=== PATIENT | male | born 1955 | race African-American/Black ===

== ENCOUNTER 2016-11-04 12:13 | Emergency (ER) | payer MEDICAID ==
--- NOTE | 2016-11-04 12:34 | ER Document Report ---
ED Medical Screen (RME) - General Stated Complaint: BLOOD PRESSURE PROBLEM Time seen by provider: 12:32 Mode of Arrival: Ambulatory Information source: Patient Notes: 61-year-old male presents to ED for blood pressure problems. He states over the last 3 months has been rising. States he knows his blood sugar is high. He is a type II diabetic. States that his blood sugar at home this morning was between 200-300. He states he is experiencing weakness, denies nausea and vomiting and he states he has frequency of urine. I have greeted and performed a rapid initial assessment of this patient. A comprehensive ED assessment and evaluation of the patient, analysis of test results and completion of medical decision making process will be conducted by an additional ED providers. - Related Data Allergies/Adverse Reactions: No Known Allergies Allergy (Verified 11/04/16 12:32) Physical Exam - Vital signs Vitals: Temp Pulse Resp BP Pulse Ox 98.3 F 86 20 162/83 H 98 11/04/16 12:30 11/04/16 12:30 11/04/16 12:30 11/04/16 12:30 11/04/16 12:30 Course - Vital Signs Vital signs: Temp Pulse Resp BP Pulse Ox 98.3 F 86 20 162/83 H 98 11/04/16 12:30 11/04/16 12:30 11/04/16 12:30 11/04/16 12:30 11/04/16 12:30
[2016-11-04] MEDS ORDERED: NORMAL SALINE 1000 ML 1,000 ML IV ONE ×2 (12:49→14:32)
[2016-11-04 12:59] LABS: ABSOLUTE EOSINOPHILS # (AUTO) 0.2 10^3/uL (0.0-0.6); ABSOLUTE LYMPHOCYTES (AUTO) 2.2 10^3/uL (0.5-4.7); ABSOLUTE MONOCYTES (AUTO) 0.5 10^3/uL (0.1-1.4); ABSOLUTE NEUT (AUTO) 4.4 10^3/uL (1.7-8.2); BASOPHILS % (AUTO) 0.6 % (0-2); EOSINOPHILS % (AUTO) 2.2 % (0-6); HEMATOCRIT 35.3 % (37.9-51.0); HEMOGLOBIN 11.1 g/dL (13.5-17.0); LYMPHOCYTES % (AUTO) 30.5 % (13-45); MEAN CORPUSCULAR HEMOGLOBIN 25.3 pg (27.0-33.4); MEAN CORPUSCULAR HGB CONC 31.6 g/dL (32.0-36.0); MEAN CORPUSCULAR VOLUME 80 fl (80-97); MONOCYTES % (AUTO) 7.3 % (3-13); RED CELL DISTRIBUTION WIDTH 16.2 % (11.5-14.0); SEGMENTED NEUTROPHILS % (AUTO) 59.4 % (42-78); WHITE BLOOD COUNT 7.4 10^3/uL (4.0-10.5)
[2016-11-04 13:01] LABS: APPEARANCE,URINE SLIGHTLY-CLOUDY; BILIRUBIN,URINE NEGATIVE (NEGATIVE); GLUCOSE, URINE >=500 mg/dL (NEGATIVE); KETONES,URINE NEGATIVE (NEGATIVE); LEUKOCYTE ESTERASE,URINE NEGATIVE (NEGATIVE); NITRITE,URINE NEGATIVE (NEGATIVE); PROTEIN,URINE >=500 mg/dL (NEGATIVE); URINE SPECIFIC GRAVITY 1.022; UROBILINOGEN,URINE NEGATIVE mg/dL (<2.0)
[2016-11-04 13:27] LABS: ALANINE AMINOTRANSFERASE 36 U/L (21-72); ALBUMIN 4.2 g/dL (3.5-5.0); ALKALINE PHOSPHATASE 158 U/L (38-126); ANION GAP 10 (5-19); ASPARTATE AMINO TRANSFERASE 24 U/L (17-59); BLOOD UREA NITROGEN 26 mg/dL (7-20); CALCIUM 9.8 mg/dL (8.4-10.2); CARBON DIOXIDE 28 mmol/L (22-30); CHLORIDE 98 mmol/L (98-107); CREATININE RESULT 1.15 mg/dL (0.52-1.25); POTASSIUM 4.6 mmol/L (3.6-5.0); SODIUM 135.8 mmol/L (137-145); TOTAL PROTEIN 7.3 g/dL (6.3-8.2)
[2016-11-04 13:40] LABS: GLUCOSE 491 mg/dL (75-110)
[2016-11-04 14:15] LABS: VENOUS BLOOD BASE EXCESS 1.7 mmol/L; VENOUS BLOOD HCO3 28.7 mmol/L (20-32); VENOUS BLOOD PCO2 55.6 mmHg (35-63); VENOUS BLOOD PH 7.33 (7.30-7.42)
--- NOTE | 2016-11-04 14:16 | ER Document Report ---
ED General - General Chief Complaint: High Blood Sugar Stated Complaint: BLOOD PRESSURE PROBLEM Mode of Arrival: Ambulatory Information source: Patient Notes: Patient presents to the emergency department with complaints of high blood pressure and high blood sugar. Patient reports he is visiting his daughter. He lives in [place]. He has been here for 3 weeks and he ran out of his insulin, Lantus. He reports he usually takes 15-20 units every night. Patient also reports he's been taking high blood pressure medication but he doesn't think it's working. Patient denies fever vomiting diarrhea. He reports he feels a little dizzy and weak but that his usual symptoms when his blood sugar is high. Upon arrival to the emergency department Accu-Chek read 421. Patient reports he will be fine if we give him something to eat, he will watch TV while waiting for the labs. TRAVEL OUTSIDE OF THE [place] IN LAST 30 DAYS: No - HPI Onset: This morning Quality of pain: No pain Severity: None Associated symptoms: Weakness Exacerbated by: Denies Relieved by: Denies Similar symptoms previously: Yes Recently seen / treated by doctor: No - Related Data Allergies/Adverse Reactions: No Known Allergies Allergy (Verified 11/04/16 12:32) Past Medical History - General Information source: Patient - Social History Smoking Status: Never Smoker Cigarette use (# per day): No Chew tobacco use (# tins/day): No Frequency of alcohol use: None Drug Abuse: None Lives with: Family Family History: Reviewed & Not Pertinent Patient has suicidal ideation: No Patient has homicidal ideation: No - Past Medical History Cardiac Medical History: Reports: Hx Hypertension Endocrine Medical History: Reports: Hx Diabetes Mellitus Type 1 Renal/ Medical History: Denies: Hx Peritoneal Dialysis Surgical Hx: Negative Review of Systems - Review of Systems Notes: Review HPI for review of systems., All other systems negative Physical Exam - Vital signs Vitals: Temp Pulse Resp BP Pulse Ox 98.3 F 86 20 162/83 H 98 11/04/16 12:30 11/04/16 12:30 11/04/16 12:30 11/04/16 12:30 11/04/16 12:30 - Notes Notes: PHYSICAL EXAMINATION: GENERAL: Well-appearing and in no acute distress nontoxic looking HEAD: Atraumatic, normocephalic. EYES: Pupils equal round and reactive to light, extraocular movements intact, sclera anicteric, conjunctiva are normal. ENT: nares patent, oropharynx clear without exudates. Moist mucous membranes. NECK: Normal range of motion, supple without lymphadenopathy LUNGS: CTAB and equal. No wheezes rales or rhonchi. HEART: Regular rate and rhythm without murmurs ABDOMEN: Soft, no tenderness. No guarding, no rebound BACK: Denies pain EXTREMITIES: Normal range of motion, no pitting edema. No cyanosis. NEUROLOGICAL: Cranial nerves grossly intact. Normal sensory/motor exams. PSYCH: Normal mood, normal affect. answers all questions appropriately SKIN: Warm, Dry, normal turgor, no rashes or lesions noted Course - Re-evaluation Re-evalutation: 11/04/16 15:21 I have consulted the attending provider Dr Ford per [facility] guidelines 11/04/16 17:55 Pt instructed on all results, pt requested bp med refill, reports he is returning to [place] 2 [place] - Vital Signs Vital signs: Temp Pulse Resp BP Pulse Ox 98.3 F 86 20 162/83 H 98 11/04/16 12:30 11/04/16 12:30 11/04/16 12:30 11/04/16 12:30 11/04/16 12:30 - Laboratory Result Diagrams: 11/04/16 12:40 11/04/16 12:40 Laboratory results interpreted by me: 11/04/16 11/04/16 11/04/16 12:40 12:40 12:42 Hgb 11.1 L Hct 35.3 L MCH 25.3 L MCHC 31.6 L RDW 16.2 H Sodium 135.8 L BUN 26 H Glucose 491 H* POC Glucose 421 H* Alkaline Phosphatase 158 H Urine Protein Urine Glucose (UA) Urine Blood Urine Ascorbic Acid 11/04/16 11/04/16 12:45 16:43 Hgb Hct MCH MCHC RDW Sodium BUN Glucose POC Glucose 331 H Alkaline Phosphatase Urine Protein >=500 H Urine Glucose (UA) >=500 H Urine Blood SMALL H Urine Ascorbic Acid 40 H Discharge - Discharge Clinical Impression: Hyperglycemia, Elevated blood pressure reading Condition: Stable Disposition: HOME, SELF-CARE Instructions: Diabetes ([facility]), Insulin ([facility]) Additional Instructions: *You have been evaluated for hyperglycemia, medication refill, history of high blood pressure *Take medication as prescribed *Monitoring blood pressure, low sodium diet *Follow up with your primary care provider within one week or return to the ED for symptoms or needs if unable to follow up with your primary care provider *Return to ED for worsening condition, changes, needs Prescriptions: Insulin Glargine,Hum.rec.anlog [Lantus] 15 unit SQ QHS #1 vial Amlodipine Besylate [Norvasc 5 mg Tablet] 5 mg PO DAILY #30 tablet Forms: Elevated Blood Pressure
[2016-11-04] MEDS ORDERED: INSULIN REG, HUMAN 100 UNIT/ML 3 ML VIAL (PYX) SUBCUT ONE (15:13)
[2016-11-04 18:35] VITALS: BP 170/89
== END 2016-11-04 18:35 | disposition home or self-care (01) ==
LOC: ER 12:13
DX: E10.65 Type 1 diabetes mellitus with hyperglycemia (principal); I10 Essential (primary) hypertension; Z79.899 Other long term (current) drug therapy; R42 Dizziness and giddiness; R53.1 Weakness
CPT/HCPCS: 99285; 96360; 96361; 36415; 82962; 85025; 80053; 81001; 82803; 71010; J1815; J7030